=== PATIENT | male | born 1970 | race Hispanic/Latino ===

== ENCOUNTER 2016-12-03 20:51 | Emergency (ER) | payer MEDICAID ==
[2016-12-03 21:04] VITALS: BP 161/96; TEMP 98.5
[2016-12-03 21:53] VITALS: PULSE 81
[2016-12-03 21:58] LABS: BASO # 0.1 K/uL (0.0-0.2); BASO % 1.1 % (0.0-2.0); EOS # 0.2 K/uL (0.0-0.7); EOS % 2.6 % (0.0-4.0); HEMATOCRIT 43.7 % (35.0-51.0); LYMPH # 3.5 K/uL (1.0-4.3); LYMPH % 39.2 % (20.0-40.0); MEAN CELL VOLUME 91.3 fL (80.0-94.0); MEAN CORPUSCULAR HEMOGLOBIN 30.7 pg (27.0-31.0); MEAN CORPUSCULAR HGB CONC 33.7 g/dL (33.0-37.0); MEAN PLATELET VOLUME 7.4 fL (7.2-11.7); MONO # 0.6 K/uL (0.0-0.8); MONO % 6.4 % (0.0-10.0); RED CELL DISTRIBUTION WIDTH 14.6 % (11.5-14.5); WHITE BLOOD COUNT 8.9 K/uL (4.8-10.8)
[2016-12-03 22:07] LABS: CHLORIDE 98 mmol/L (98-107)
[2016-12-03 22:08] LABS: POTASSIUM 3.9 mmol/L (3.6-5.2); SODIUM 137 mmol/L (132-148)
[2016-12-03 22:10] LABS: BILIRUBIN,TOTAL 0.5 mg/dL (0.2-1.3); CARBON DIOXIDE 25 mmol/L (22-30); GFR AFRICAN-AMERICAN > 60
[2016-12-03 22:11] LABS: ALB/GLOB RATIO 1.9 (1.0-2.1); ALKALINE PHOSPHATASE 84 U/L (38-126); ALT/SGPT 38 U/L (21-72); AST/SGOT 33 U/L (17-59); BLOOD UREA NITROGEN 12 mg/dL (9-20); GLUCOSE,RANDOM 90 mg/dL (75-110); TOTAL PROTEIN 7.6 g/dL (6.3-8.3)
[2016-12-03 22:22] VITALS: RESP 17
--- NOTE | 2016-12-03 22:43 | C.PDOC ---
History Of Present Illness 46 y/o M p/w chest pain x 16 hours. Pain is midsternal, sharp, lasting 2 seconds at a time, occuring approximately every 15 minutes. Patient states he has had it before but never lasting all day. Feels mildly short of breath and also sweaty today but unsure if it is due to hot weather. Denies fever, nausea, vomiting, dizziness. Pain is not affected by position or eating. Time Seen by Provider: 12/03/16 21:22 Chief Complaint (Nursing): Chest Pain Past Medical History Vital Signs: Last Vital Signs Temp 98.5 F 12/03/16 21:01 Pulse 81 12/03/16 21:33 Resp 17 12/03/16 22:08 BP 161/96 H 12/03/16 21:01 Pulse Ox - Medical History PMH: Anxiety, Diabetes, HTN ("alcohol-induced") Denies: Hepatitis, HIV, Chronic Kidney Disease, Seizures, Sexually Transmitted Disease - [facility] Procedures ALCOHOL DETOXIFICATION (10/11/14) Family History: States: No Known Family Hx - Social History Hx Tobacco Use: No Hx Alcohol Use: Yes Hx Substance Use: No - Immunization History Hx Tetanus Toxoid Vaccination: No Hx Influenza Vaccination: No Hx Pneumococcal Vaccination: No Review Of Systems Except As Marked, All Systems Reviewed And Found Negative. Constitutional: Negative for: Fever Respiratory: Negative for: Cough Physical Exam - Physical Exam Appears: No Acute Distress Skin: Normal Color Head: Normacephalic Eye(s): bilateral: PERRL Oral Mucosa: Moist Neck: Supple Chest: No Deformity, No Tenderness Cardiovascular: Rhythm Regular Respiratory: No Rales, No Rhonchi, No Wheezing Gastrointestinal/Abdominal: Soft, No Tenderness Back: No CVA Tenderness Extremity: No Swelling Pulses: Left Radial: Normal, Right Radial: Normal Neurological/Psych: Normal Speech, Normal Cognition ED Course And Treatment - Laboratory Results Result Diagrams: 12/03/16 21:48 12/03/16 21:48 Medical Decision Making Medical Decision Making: EKG NSR 80 bpm, no ST/T wave changes. Patient eloped from the ED. Disposition - Disposition Disposition: ELOPEMENT - ER ONLY Disposition Time: 22:08 Condition: UNKNOWN - Clinical Impression Clinical Impression: Chest pain
== END 2016-12-03 22:10 | disposition left against medical advice (07) ==
LOC: C.ER 20:51
DX: R07.9 Chest pain, unspecified (principal); I10 Essential (primary) hypertension; F41.9 Anxiety disorder, unspecified; Z72.0 Tobacco use

== ENCOUNTER 2017-02-04 05:59 | Inpatient (IN) | payer MEDICAID ==
--- NOTE | 2017-02-04 06:11 | C.PDOC ---
History Of Present Illness The patient presents to the ED for evaluation of acute alcohol intoxication for an unknown duration. Patient admits to drinking around 3 bottles of Vodka after having an argument with his girlfriend. Patient denies suicidal/homicidal ideation and has no physical complaints at this time. Time Seen by Provider: 02/04/17 06:08 Chief Complaint (Nursing): Substance Abuse History Per: Patient History/Exam Limitations: intoxication Onset/Duration Of Symptoms: Unknown Current Symptoms Are (Timing): Still Present Suicide/Self Injury Attempted (Context): None Modifying Factor(s): Alcohol Associated Symptoms: denies: Suicidal Thoughts, Suicidal Plan Involuntary Hold By: None Recent travel outside of the [place]: No Additional History Per: Patient Past Medical History Reviewed: Historical Data, Nursing Documentation, Vital Signs Vital Signs: Last Vital Signs Temp 97.8 F 02/04/17 06:28 Pulse 90 02/04/17 06:28 Resp 20 02/04/17 06:28 BP 140/80 02/04/17 06:28 Pulse Ox 97 02/04/17 06:28 - Medical History PMH: Anxiety, Diabetes, HTN ("alcohol-induced") Surgical History: No Surg Hx - [facility] Procedures ALCOHOL DETOXIFICATION (10/11/14) Family History: States: Unknown Family Hx - Social History Hx Tobacco Use: No Hx Alcohol Use: Yes Hx Substance Use: No - Immunization History Hx Tetanus Toxoid Vaccination: No Hx Influenza Vaccination: No Hx Pneumococcal Vaccination: No Review Of Systems Constitutional: Positive for: Other (+ETOH intoxication ) Cardiovascular: Negative for: Chest Pain Respiratory: Negative for: Cough, Shortness of Breath Gastrointestinal: Negative for: Nausea, Vomiting, Abdominal Pain Skin: Negative for: Rash, Lesions, Jaundice, Bruising Neurological: Negative for: Weakness, Numbness Psych: Negative for: Suicidal ideation Physical Exam - Physical Exam Appears: No Acute Distress, Other (visibly intoxicated ) Skin: Normal Color, Warm, Dry Head: Normacephalic Eye(s): bilateral: Normal Inspection Oral Mucosa: Moist, Other (alcohol on breath ) Neck: Supple Chest: Symmetrical, No Deformity, No Tenderness Cardiovascular: Rhythm Regular, No Murmur Respiratory: No Rales, No Rhonchi, No Wheezing Extremity: Normal ROM, Capillary Refill (less than 2 seconds ) Neurological/Psych: Other (arousable to touch and verbal stimuli ) Gait: Unsteady ED Course And Treatment O2 Sat by Pulse Oximetry: 92 Progress Note: labs ordered. Pt recieved IV Fluids. ED OBSERVATION Date of observation admission: 02/04/17 Time of observation admission: 06:14 - Observation admission statement Patient is being placed in observation because:: acute alcohol intoxication - Goals of Observation Goals of observation are:: sobriety - Progress Note Progress Note: 02/04/17 06:14 vitals stable Disposition Counseled Patient/Family Regarding: Studies Performed, Diagnosis - Disposition Disposition Time: 06:11 Condition: UNKNOWN Forms: [facility] (Uzbek) - Clinical Impression Clinical Impression: Alcohol intoxication - Scribe Statement The provider has reviewed the documentation as recorded by the Scribe (Hailey Adkins) Provider Attestation: All medical record entries made by the Scribe were at my direction and personally dictated by me. I have reviewed the chart and agree that the record accurately reflects my personal performance of the history, physical exam, medical decision making, and the department course for this patient. I have also personally directed, reviewed, and agree with the discharge instructions and disposition. Physician Patient Turnover Patient Signed Over To: Swapna Caballero Handoff Comments: pending sobriety and disposition
[2017-02-04] MEDS ORDERED: Sodium Chloride 0.9% 1,000 ML IV ONE (06:12)
[2017-02-04] MEDS ORDERED: Sodium Chloride 0.9% 1,000 ML ONE (06:31)
[2017-02-04 06:34] LABS: BASO # 0.1 K/uL (0.0-0.2); BASO % 1.7 % (0.0-2.0); EOS # 0.2 K/uL (0.0-0.7); HEMATOCRIT 43.8 % (35.0-51.0); LYMPH # 3.9 K/uL (1.0-4.3); LYMPH % 51.4 % (20.0-40.0); MEAN CELL VOLUME 93.7 fL (80.0-94.0); MEAN CORPUSCULAR HEMOGLOBIN 32.9 pg (27.0-31.0); MEAN CORPUSCULAR HGB CONC 35.1 g/dL (33.0-37.0); MEAN PLATELET VOLUME 6.9 fL (7.2-11.7); MONO # 0.4 K/uL (0.0-0.8); MONO % 5.7 % (0.0-10.0); RED CELL DISTRIBUTION WIDTH 13.7 % (11.5-14.5); WHITE BLOOD COUNT 7.6 K/uL (4.8-10.8)
[2017-02-04 06:40] LABS: CHLORIDE 106 mmol/L (98-107); SODIUM 146 mmol/L (132-148)
[2017-02-04 06:41] LABS: POTASSIUM 4.2 mmol/L (3.6-5.2)
[2017-02-04 06:43] LABS: ALB/GLOB RATIO 1.3 (1.0-2.1); ALKALINE PHOSPHATASE 78 U/L (38-126); ALT/SGPT 125 U/L (21-72); AST/SGOT 90 U/L (17-59); BILIRUBIN,TOTAL 0.5 mg/dL (0.2-1.3); BLOOD UREA NITROGEN 15 mg/dL (9-20); CARBON DIOXIDE 24 mmol/L (22-30); GFR AFRICAN-AMERICAN > 60; GLUCOSE,RANDOM 94 mg/dL (75-110); TOTAL PROTEIN 7.8 g/dL (6.3-8.3)
[2017-02-04 06:44] LABS: CALCIUM 8.9 mg/dl (8.6-10.4)
[2017-02-04 07:00] LABS: ALCOHOL SERUM 338 mg/dl (0-10)
[2017-02-04] MEDS: Folic Acid 1 MG, Thiamine 100 MG, Multivitamin (MVI) 10 ML in Dextrose 5% In Water 1,00... IV SCH ×2 (13:20→16:11)
[2017-02-04 13:38] LABS: RBC URINE < 1 /hpf (0-3); URINE BILIRUBIN NEGATIVE (NEGATIVE); URINE BLOOD NEGATIVE (NEGATIVE); URINE COLOR Yellow (YELLOW); URINE GLUCOSE (UA) NORMAL (Normal); URINE KETONE NEGATIVE (NEGATIVE); URINE LEUKOCYTE ESTERASE NEG Leu/uL (Negative); URINE PROTEIN NEGATIVE (NEGATIVE); URINE UROBILINOGEN NORMAL mg/dL (0.2-1.0); WBC URINE < 1 /hpf (0-5)
--- NOTE | 2017-02-04 16:56 | PCM.BM ---
<Carmelina Borden M - Last Filed: 02/04/17 16:53> Treatment Plan Problems - Problems identified on initial assessmt Depression Date Initiated: 02/04/17 Time Initiated: 16:53 Assessment reference: NA Status: Active Alcohol abuse Date Initiated: 02/04/17 Time Initiated: 16:54 Assessment reference: NA Status: Active Treatment assets and liabiliti Patient Assests: cooperative, educated, motivated, ADL independent, good support system Patient Liabilities: substance abuse (Etoh) - Milieu Protocol Maintain good personal hygiene: daily Encourage regular showers, daily Remind patient to perform daily oral care, other Assist patient to perform ADL's (self) Conduct patient checks and document Observation sheet: Q15 minutes (safety) Maintain personal safety: every shift Educate patient to report safety concerns to staff, every shift Monitor environment for contraband/sharps Medication safety: Monitor for expected outcome, potential side effects: every shift, Assess barriers to learning: every shift, Assess readiness for medication education: every shift <Marilee Shin - Last Filed: 02/06/17 11:21> Family Contact Family involvement: Famliy/SO not involved - Goals for Treatment Patient goals for treatment: "I want to go home." Discharge/Continuing Care - Education Needs Education Needs: Patient Medication, Patient Coping Skills - Discharge Discharge Criteria: Tolerates medication w/o severe side effects, Reduction of target symptoms Discharge to:: Home - Treatment Team Participation Discussed with Family/SO: No Was Patient/Family/SO present at Treatment Team Meeting: No (Pt signed out AMA)
[2017-02-05] MEDS: Multiple Vitamins Tab PO SCH ×2 (10:56→11:12)
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
[2017-02-06] MEDS: Multiple Vitamins Tab PO SCH (10:40)
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
[2017-02-06 11:01] VITALS: BP 127/79; PULSE 75; RESP 16; TEMP 97.9; O2SAT 99
== END 2017-02-06 11:15 | disposition left against medical advice (07) | DRG 749 ==
LOC: C.ER 05:59 → C.9OBSV 06:13 → OBSVTOIN 14:43 → C.9E 15:29 → C.5E 16:00
PROVIDERS: ADMIT Psychiatry & Neurology Psychiatry; ATTEND Psychiatry & Neurology Psychiatry
PROC: HZ2ZZZZ Detoxification Services for Substance Abuse Treatment (ICD-10-PCS; principal; 2017-02-04)
PROC: HZ59ZZZ Individual Psychotherapy for Substance Abuse Treatment, Supportive (ICD-10-PCS; 2017-02-04)
PROC: GZ3ZZZZ Medication Management (ICD-10-PCS; 2017-02-04)
DX: F10.220 Alcohol dependence with intoxication, uncomplicated (principal); F10.230 Alcohol dependence with withdrawal, uncomplicated; F32.9 Major depressive disorder, single episode, unspecified; F41.0 Panic disorder [episodic paroxysmal anxiety]; Y90.8 Blood alcohol level of 240 mg/100 ml or more; I10 Essential (primary) hypertension; E11.9 Type 2 diabetes mellitus without complications; Z59.0 Homelessness; Z91.14 Patient's other noncompliance with medication regimen

== ENCOUNTER 2017-02-07 00:10 | Emergency (ER) | payer MEDICAID ==
[2017-02-07 02:52] VITALS: BP 123/71; PULSE 85; RESP 17; TEMP 98.2; O2SAT 96
--- NOTE | 2017-02-07 04:35 | C.PDOC ---
History Of Present Illness The patient reports that he has been experiencing chest pains which is associated with bilateral hands and feet cramping. The patient reports that the has been drinking all day and states he "needs to be admitted for detox." Denies SOB, nausea, vomiting, diarrhea, GI bleeding, numbness, weakness. Time Seen by Provider: 02/07/17 02:06 Chief Complaint (Nursing): Chest Pain History Per: Patient History/Exam Limitations: no limitations Onset/Duration Of Symptoms: Hrs Current Symptoms Are (Timing): Better Pain Scale Rating Of: 3 Quality: "Pain" Associated Symptoms: denies: Nausea, Dyspnea, Diaphoresis, Syncope Modifying Factors: None Exacerbating Factors: None Past Medical History Vital Signs: Last Vital Signs Temp 98.2 F 02/07/17 02:49 Pulse 85 02/07/17 02:49 Resp 17 02/07/17 02:49 BP 123/71 02/07/17 02:49 Pulse Ox 96 02/07/17 04:37 - Medical History PMH: Anxiety, Diabetes (Pt reported hx), HTN ("alcohol-induced") Denies: Hepatitis (Patient denied), HIV (Patient denied), Chronic Kidney Disease, Seizures (Patient denied), Sexually Transmitted Disease (Patient denied ) - [facility] Procedures ALCOHOL DETOXIFICATION (10/11/14) Family History: States: Unknown Family Hx - Social History Hx Tobacco Use: No Hx Alcohol Use: No Hx Substance Use: Yes - Immunization History Hx Tetanus Toxoid Vaccination: No Hx Influenza Vaccination: No Hx Pneumococcal Vaccination: No Review Of Systems Except As Marked, All Systems Reviewed And Found Negative. Physical Exam - Physical Exam Appears: Non-toxic, No Acute Distress Skin: Normal Color, Warm Head: Atraumatic, Normacephalic Eye(s): bilateral: Normal Inspection Oral Mucosa: Moist Neck: Normal ROM, Supple Chest: Symmetrical, No Tenderness Cardiovascular: Rhythm Regular, No Friction Rub, No Murmur Respiratory: Normal Breath Sounds, No Rales, No Rhonchi, No Stridor, No Wheezing Gastrointestinal/Abdominal: Normal Exam, Soft, No Tenderness Back: Normal Inspection Extremity: Normal ROM, No Tenderness, No Swelling Neurological/Psych: Oriented x3, Normal Speech, Normal Cranial Nerves, Normal Motor, Normal Sensation Gait: Steady ED Course And Treatment ECG: Interpreted By Me, Viewed By Me ECG Rhythm: Sinus Rhythm ECG Interpretation: Normal (normal axis) Rate From EC O2 Sat by Pulse Oximetry: 96 (on RA) Pulse Ox Interpretation: Normal Medical Decision Making Medical Decision Making: Old records reviewed, the patient was last seen in the ED 3 days ago and was admitted to the psych floor. The patient reports that he signed out AMA and wants to be re-admitted today and does not have chest pain. The patient was informed that there is no detox beds at this time and is requesting to be discharged and sent to another hospital for detox. On re-exam, the patient is ambulatory in the ED with steady gait. Normal speech. The patient is clinically sober and was given information for outpatient follow up, Disposition - Disposition Referrals: [facility] [Outside] Disposition: HOME/ ROUTINE Disposition Time: 04:35 Condition: GOOD Additional Instructions: Follow up with the medical doctor within 1-2 days. Return if worsened. Instructions: Alcohol Intoxication (ED) Forms: [facility] (Guamanian) - Clinical Impression Clinical Impression: Alcohol intoxication, Alcohol dependence
--- NOTE | 2017-02-11 18:24 | CARD ---
APPROVED REPORT EKG Measurement Heart [id number] <Conclusion> Normal sinus rhythm Normal ECG
== END 2017-02-07 04:55 | disposition home or self-care (01) ==
LOC: C.ER 00:10
DX: F10.220 Alcohol dependence with intoxication, uncomplicated (principal); Y90.9 Presence of alcohol in blood, level not specified

== ENCOUNTER 2017-10-10 05:37 | Emergency (ER) | payer MEDICARE, MEDICAID ==
[2017-10-10 05:38] VITALS: BMI 36.6
[2017-10-10] MEDS ORDERED: Albuterol-Ipratrop 3 mg / 0.5 (3 ml) UD ONE (05:56)
[2017-10-10] MEDS ORDERED: Albuterol-Ipratrop 3 mg / 0.5 (3 ml) UD INH STA (06:03)
[2017-10-10] MEDS ORDERED: Sodium Chloride 0.9% 1,000 ML IV ONE ×2 (06:05→06:43)
[2017-10-10] MEDS ORDERED: Sodium Chloride 0.9% 1,000 ML ONE ×2 (06:10→07:59)
[2017-10-10 06:15] VITALS: TEMP 98.2
[2017-10-10 06:46] LABS: BASO # 0.1 K/uL (0.0-0.2); BASO % 1.3 % (0.0-2.0); EOS # 0.2 K/uL (0.0-0.7); EOS % 2.1 % (0.0-4.0); HEMOGLOBIN 13.9 g/dL (12.0-18.0); LYMPH # 2.3 K/uL (1.0-4.3); MEAN CELL VOLUME 92.9 fL (80.0-94.0); MEAN CORPUSCULAR HEMOGLOBIN 32.2 pg (27.0-31.0); MEAN CORPUSCULAR HGB CONC 34.7 g/dL (33.0-37.0); MEAN PLATELET VOLUME 7.3 fL (7.2-11.7); MONO # 0.7 K/uL (0.0-0.8); MONO % 8.3 % (0.0-10.0); NEUT # 4.7 K/uL (1.8-7.0); NEUT % 59.3 % (50.0-75.0); RBC 4.33 Mil/uL (4.40-5.90); RED CELL DISTRIBUTION WIDTH 15.3 % (11.5-14.5); WHITE BLOOD COUNT 7.8 K/uL (4.8-10.8)
--- NOTE | 2017-10-10 06:47 | C.PDOC ---
Addendum entered and electronically signed by Sara Vazquez PA 10/10/17 12 :27: Addendum Addendum: 10/10/17 12:26 pt sleeping comfortably after getting librium and magnesium; no further complaints of muscle cramps, no trmeors noted, pt to be discharged for his appt at [facility] at 2 ppm. Original Note: History Of Present Illness 47 y/o male presents to the ED c/o muscle cramps, vomiting, and shallow breathing since this morning. Notes he was going to alcohol detox program today so he tried to wean off alcohol since last night. Patient states he usually drinks alcohol daily. Time Seen by Provider: 10/10/17 06:32 Chief Complaint (Nursing): GI Problem History Per: Patient History/Exam Limitations: no limitations Onset/Duration Of Symptoms: Hrs Current Symptoms Are (Timing): Still Present Past Medical History Reviewed: Historical Data, Nursing Documentation, Vital Signs Vital Signs: Last Vital Signs Temp 98.2 F 10/10/17 06:14 Pulse 72 10/10/17 06:14 Resp 20 10/10/17 06:14 BP 92/62 L 10/10/17 06:14 Pulse Ox 99 10/10/17 06:51 - Medical History PMH: Anxiety ([facility]-2016), Bipolar Disorder, Depression ([facility]-2016), Diabetes ( Pt reported hx), HTN ("alcohol-induced") Denies: Hepatitis (Patient denied), HIV (Patient denied), Chronic Kidney Disease, Seizures (Patient denied), Sexually Transmitted Disease (Patient denied ) Surgical History: Hernia Repair - [facility] Procedures ALCOHOL DETOXIFICATION (10/11/14) DETOXIFICATION SERVICES FOR SUBSTANCE ABUSE TREATMENT (02/04/17) GROUP PSYCHOTHERAPY (08/17/17) INDIV PSYCHOTHERAPY FOR SUBSTANCE ABUSE TREATMENT, SUPPORT (02/04/17) INDIVIDUAL PSYCHOTHERAPY, COGNITIVE-BEHAVIORAL (08/17/17) INDIVIDUAL PSYCHOTHERAPY, SUPPORTIVE (03/27/17) MEDICATION MANAGEMENT (03/27/17) MEDS MGMT FOR SUBSTANCE ABUSE TREATMENT, OTH REPL MED (03/27/17) Family History: States: Unknown Family Hx - Social History Hx Tobacco Use: No Hx Alcohol Use: Yes Hx Substance Use: No - Immunization History Hx Tetanus Toxoid Vaccination: No Hx Influenza Vaccination: No Hx Pneumococcal Vaccination: No Review Of Systems Except As Marked, All Systems Reviewed And Found Negative. Constitutional: Positive for: Other (muscle cramps). Negative for: Fever, Chills Cardiovascular: Negative for: Chest Pain Respiratory: Positive for: Other (difficulty breathing). Negative for: Cough Gastrointestinal: Positive for: Vomiting Neurological: Positive for: Other (tremors) Physical Exam - Physical Exam Appears: Non-toxic, Other (uncomfortable) Skin: Warm, Dry Head: Atraumatic, Normacephalic Eye(s): bilateral: Normal Inspection, EOMI Nose: Normal Oral Mucosa: Moist Neck: Normal ROM, Supple Chest: Symmetrical Cardiovascular: Rhythm Regular Respiratory: Decreased Breath Sounds Gastrointestinal/Abdominal: Soft, No Tenderness, No Distention Extremity: Normal ROM, Pedal Edema, No Deformity, Other (Muscle spasms in the right calf) Neurological/Psych: Oriented x3, Normal Speech, Other (Mild tremor noted) ED Course And Treatment - Laboratory Results Result Diagrams: 10/10/17 06:40 O2 Sat by Pulse Oximetry: 99 (RA) Pulse Ox Interpretation: Normal Progress Note: Patient given duoneb x1 upon arrival. Ordered labs and chest x- ray. Administered IV fluids, Zofran, and Librium. Patient will be endorsed to CURTIS Vazquez at 7:00 Disposition - Disposition Disposition Time: 07:00 Condition: STABLE Forms: [facility] (Mauritanian) - Clinical Impression Clinical Impression: Alcohol withdrawal - PA / TYPEWRIT[employer] FUNCTIONAL TESTER / Resident Statement MD/DO has reviewed & agrees with the documentation as recorded. - Scribe Statement The provider has reviewed the documentation as recorded by the Scribe (Mi Garg) All medical record entries made by the Scribe were at my direction and personally dictated by me. I have reviewed the chart and agree that the record accurately reflects my personal performance of the history, physical exam, medical decision making, and the department course for this patient. I have also personally directed, reviewed, and agree with the discharge instructions and disposition. Physician Patient Turnover Patient Signed Over To: Sara Vazquez Handoff Comments: Pending labs and CXR
[2017-10-10 07:09] LABS: ALB/GLOB RATIO 1.2 (1.0-2.1); ALBUMIN 3.9 g/dL (3.5-5.0); ALT/SGPT 26 U/L (21-72); AST/SGOT 37 U/L (17-59); BLOOD UREA NITROGEN 13 mg/dL (9-20); CALCIUM 8.7 mg/dl (8.6-10.4); GFR AFRICAN-AMERICAN > 60; GFR NON-AFRICAN AMERICAN > 60
[2017-10-10] MEDS ORDERED: Magnesium Sulfate 1 gm in D5W 1 GM/100 ML BAG IVPB ONE ×2 (07:46→07:59)
[2017-10-10 09:03] VITALS: RESP 20
--- NOTE | 2017-10-10 09:59 | RAD ---
Chest x-ray single frontal view History: Chest pain. Comparison: None available. Findings: Mild venous congestion. Elevated right hemidiaphragm. Degenerative changes in the spine with paravertebral osteophytes. Heart size within normal limits. Impression: Mild venous congestion. Elevated right hemidiaphragm.
[2017-10-10 10:25] VITALS: BP 137/67; PULSE 137; O2SAT 94
[2017-10-10 11:53] LABS: B-TYPE NATRIURETIC PEPTIDE 29.4 pg/mL (0-450)
== END 2017-10-10 12:34 | disposition home or self-care (01) ==
LOC: C.ER 05:37
DX: F10.239 Alcohol dependence with withdrawal, unspecified (principal); E11.9 Type 2 diabetes mellitus without complications; I10 Essential (primary) hypertension; F17.210 Nicotine dependence, cigarettes, uncomplicated
CPT/HCPCS: 71045; 80053; 82948; 83735; 83880; 84100; 85025; 96361; 96365; 96375; 99285; G0480; J2405; J3475; J7040

== ENCOUNTER 2017-10-12 12:05 | Emergency (ER) | payer MEDICARE, MEDICAID ==
[2017-10-12 12:06] VITALS: BMI 36.6
[2017-10-12 12:24] VITALS: O2SAT 97
--- NOTE | 2017-10-12 14:13 | C.PDOC ---
History Of Present Illness 47 y/o male presents to the ER complaining of bilateral lower extremity pain. 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 Patient denies having weakness and numbness. Time Seen by Provider: 10/12/17 12:54 Chief Complaint (Nursing): Lower Extremity Problem/Injury History Per: Patient History/Exam Limitations: no limitations Onset/Duration Of Symptoms: Days Current Symptoms Are (Timing): Still Present Severity: Moderate Past Medical History Reviewed: Historical Data, Nursing Documentation, Vital Signs Vital Signs: Last Vital Signs Temp 98.6 F 10/12/17 17:44 Pulse 91 H 10/12/17 17:44 Resp 18 10/12/17 17:44 BP 125/83 10/12/17 17:44 Pulse Ox 97 10/12/17 18:11 - Medical History PMH: Anxiety ([facility]-2016), Back Problems (broken neck), Bipolar Disorder, Depression ([facility]-2016), Diabetes (Pt reported hx), HTN ("alcohol-induced") Denies: Hepatitis (Patient denied), HIV (Patient denied), Chronic Kidney Disease, Seizures (Patient denied), Sexually Transmitted Disease (Patient denied ) Surgical History: Hernia Repair - [facility] Procedures ALCOHOL DETOXIFICATION (10/11/14) DETOXIFICATION SERVICES FOR SUBSTANCE ABUSE TREATMENT (02/04/17) GROUP PSYCHOTHERAPY (08/17/17) INDIV PSYCHOTHERAPY FOR SUBSTANCE ABUSE TREATMENT, SUPPORT (02/04/17) INDIVIDUAL PSYCHOTHERAPY, COGNITIVE-BEHAVIORAL (08/17/17) INDIVIDUAL PSYCHOTHERAPY, SUPPORTIVE (03/27/17) MEDICATION MANAGEMENT (03/27/17) MEDS MGMT FOR SUBSTANCE ABUSE TREATMENT, OTH REPL MED (03/27/17) Family History: States: No Known Family Hx - Social History Hx Tobacco Use: No Hx Alcohol Use: No Hx Substance Use: No - Immunization History Hx Tetanus Toxoid Vaccination: No Hx Influenza Vaccination: No Hx Pneumococcal Vaccination: No Review Of Systems Except As Marked, All Systems Reviewed And Found Negative. Constitutional: Negative for: Fever, Chills Musculoskeletal: Positive for: Other (trunk and bilateral lower extremity pain) Physical Exam - Physical Exam Appears: Non-toxic, No Acute Distress Skin: Normal Color, Warm, Dry Head: Atraumatic, Normacephalic Eye(s): bilateral: Normal Inspection Nose: Normal Oral Mucosa: Moist Neck: Supple Chest: Symmetrical Cardiovascular: Rhythm Regular Respiratory: Normal Breath Sounds, No Rales, No Rhonchi, No Wheezing Extremity: Other (+1 pitting edema in bilateral lower extremities, warm bilateral feet) Pulses: Left Dorsalis Pedis: Normal, Right Dorsalis Pedis: Normal Neurological/Psych: Oriented x3, Normal Speech ED Course And Treatment - Laboratory Results Result Diagrams: 10/12/17 14:57 10/12/17 14:57 O2 Sat by Pulse Oximetry: 97 (RA) Pulse Ox Interpretation: Normal Progress Note: Labs, UA, and Duplex Scan- Lower Ext. Bi ordered and reviewed. Duplex was negative for DVT. Patient has been discharged with a prescription for compression stocking and told to follow up in clinic. Disposition - Disposition Disposition: HOME/ ROUTINE Disposition Time: 16:58 Condition: STABLE Additional Instructions: Follow up with PMD within 1-2 days. Return to ED if feel worse. Leg elevation at home. Compression stocking while at work. Prescriptions: Comp.stocking,Knee,Long,X-Lrg [Activa Men's Dress Sock] 2 each MC ONCE #2 each Instructions: Dependent Edema (DC) Forms: [employer] 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 - Scribe Statement The provider has reviewed the documentation as recorded by the Janeyibe Yogesh Rosado Provider Attestation All medical record entries made by the Scribe were at my direction and personally dictated by me. I have reviewed the chart and agree that the record accurately reflects my personal performance of the history, physical exam, medical decision making, and the department course for this patient. I have also personally directed, reviewed, and agree with the discharge instructions and disposition.
[2017-10-12 15:00] LABS: BASO # 0.1 K/uL (0.0-0.2); BASO % 1.1 % (0.0-2.0); EOS # 0.2 K/uL (0.0-0.7); EOS % 2.2 % (0.0-4.0); HEMOGLOBIN 14.3 g/dL (12.0-18.0); LYMPH # 1.8 K/uL (1.0-4.3); LYMPH % 25.6 % (20.0-40.0); MEAN CELL VOLUME 92.7 fL (80.0-94.0); MEAN CORPUSCULAR HEMOGLOBIN 32.3 pg (27.0-31.0); MEAN CORPUSCULAR HGB CONC 34.8 g/dL (33.0-37.0); MEAN PLATELET VOLUME 6.9 fL (7.2-11.7); MONO # 0.4 K/uL (0.0-0.8); NEUT # 4.7 K/uL (1.8-7.0); NEUT % 65.1 % (50.0-75.0); RBC 4.42 Mil/uL (4.40-5.90); RED CELL DISTRIBUTION WIDTH 14.8 % (11.5-14.5); WHITE BLOOD COUNT 7.2 K/uL (4.8-10.8)
[2017-10-12 15:04] LABS: SQUAMOUS EPITHIAL 2 /hpf (0-5); URINE BILIRUBIN NEGATIVE (NEGATIVE); URINE BLOOD NEGATIVE (NEGATIVE); URINE CLARITY Clear (Clear); URINE COLOR Yellow (YELLOW); URINE GLUCOSE (UA) NORMAL (Normal); URINE LEUKOCYTE ESTERASE NEG Leu/uL (Negative); URINE PROTEIN NEGATIVE (NEGATIVE); URINE UROBILINOGEN NORMAL mg/dL (0.2-1.0)
[2017-10-12 15:08] LABS: PROTHROMBIN TIME 11.5 SECONDS (9.7-12.2)
[2017-10-12 15:17] LABS: ALB/GLOB RATIO 1.2 (1.0-2.1); ALBUMIN 4.1 g/dL (3.5-5.0); ALT/SGPT 34 U/L (21-72); AST/SGOT 39 U/L (17-59); BLOOD UREA NITROGEN 12 mg/dL (9-20); CALCIUM 8.8 mg/dl (8.6-10.4); GFR AFRICAN-AMERICAN > 60; GFR NON-AFRICAN AMERICAN > 60; LIPASE 38 U/L (23-300)
[2017-10-12 17:44] VITALS: BP 125/83; PULSE 91; RESP 18; TEMP 98.6
--- NOTE | 2017-10-13 13:11 | VASCLAB ---
PROCEDURE: Lower Extremity Venous Duplex Exam. HISTORY: LE edema PRIORS: None. TECHNIQUE: Bilateral common femoral, femoral, popliteal and posterior tibial, peroneal and great saphenous veins were evaluated. Flow was assessed with color Doppler, compressibility, assessment of phasic flow and augmentation response. Report prepared by DEL Quevedo, RVT FINDINGS: RIGHT: 1. Common Femoral Vein: 1.1. Compressibility - Fully compressible: Thrombus - None : Flow - Phasic: Augmentation -Normal: Reflux - None. 2. Femoral Vein: 2.1. Compressibility - Fully compressible: Thrombus - None : Flow - Phasic: Augmentation -Normal: Reflux - None. 3. Popliteal Vein: 3.1. Compressibility - Fully compressible: Thrombus - None : Flow - Phasic: Augmentation -Normal: Reflux - None. 4. Posterior Tibial Vein: 4.1. Compressibility - Fully compressible: Thrombus - None: Flow - Phasic: Augmentation -Normal: Reflux - None. 5. Peroneal Vein: 5.1. Compressibility - Fully compressible: Thrombus - None: Flow - Phasic: Augmentation -Normal: Reflux - None. 6. Great Saphenous Vein: 6.1. Compressibility - Fully compressible: Thrombus - None: Flow - Phasic: Augmentation - Normal: Reflux - Severe. LEFT: 1. Common Femoral Vein: 1.1. Compressibility - Fully compressible: Thrombus - None: Flow - Phasic: Augmentation -Normal: Reflux - None. 2. Femoral Vein: 2.1. Compressibility - Fully compressible: Thrombus - None: Flow - Phasic: Augmentation -Normal: Reflux - None. 3. Popliteal Vein: 3.1. Compressibility - Fully compressible: Thrombus - None : Flow - Phasic: Augmentation -Normal: Reflux - None. 4. Posterior Tibial Vein: 4.1. Compressibility - Fully compressible: Thrombus - None: Flow - Phasic: Augmentation -Normal: Reflux - None. 5. Peroneal Vein: 5.1. Compressibility - Fully compressible: Thrombus - None: Flow - Phasic: Augmentation -Normal: Reflux - None. 6. Great Saphenous Vein: 6.1. Compressibility - Fully compressible: Thrombus - None: Flow - Phasic: Augmentation - Normal: Reflux - None. OTHER FINDINGS: Right: None significant. Left: None significant. IMPRESSION: Right: No evidence of deep or superficial vein thrombosis of the right lower extremity. Valvular incompetence of the right greater saphenous vein. Left: No evidence of deep or superficial vein thrombosis of the left lower extremity. Normal valve function noted of the left side.
== END 2017-10-12 17:51 | disposition home or self-care (01) ==
LOC: C.ER 12:05
DX: R60.0 Localized edema (principal); E11.9 Type 2 diabetes mellitus without complications